=== PATIENT | male | born 1990 | race Hispanic/Latino ===

== ENCOUNTER → 2017-06-07 | Day surgery (SDC) | payer OTHER ==
[~2017-06-07] VITALS: Ht 167.6 cm; Wt 79.0 kg
[~2017-06-07] MED LIST: CLON0.1T PO; DEXL60CA5 PO; ESOM40CA41 PO; FLUO20CA25 PO; KTC2C15 TP; Lactated Ringer's 1,000 ML IV ONE; MULT-1018 PO; OXYC1TAB24 PO; Ondansetron 2 mg/mL 2 mL Inj ONE; Propofol 10,000 mCg/mL 20 mL Inj ONE
[2017-06-07 14:04] VITALS: BP 135/71; PULSE 67; RESP 16; O2SAT 98
--- NOTE | 2017-06-07 14:28 | PCM.HPANE ---
Patient Data Date of Service: Jun 07, 2017 Surgeon Admitting Provider: Attending Provider:Mohan Clinton MD Primary Care Physician:Karlo Dockery DO Other Provider:Lorie Urban Anesthesia Reason for Visit GERD Ht/WT & BMI Height (Feet): 5 Height (Inches): 6 Weight (Kilograms): 79 Body Mass Index 27.00 Allergies Coded Allergies: fentanyl (Verified Adverse Reaction, Intermediate, HEADACHE,AGITATION, ) Past Anesthesia History Anesthesia History: Positive for:: Anesthesia Reactions (Fentanyl), Denies:: Abnormal Airway, Difficult Intubation, Fam Anesthesia Reaction, Fam Malignant Hypertherm, Malignant Hyperthermia Diabetes History Hx Diabetes?: No MRSA MRSA: No Medications Hypertension Medication: No Home Meds Incl Beta Morteza: No Reported Medications Ketoconazole 15 Gm Cream..g.15 Gm TP 06/06/17 oxyCODONE-Acetaminophen 5-325 mg 1 Each Tablet1 Tab PO Q6H PRN For Pain Ref 0 11/03/16 Multivitamin (Multi Vitamin Daily)1 Each Tablet1 Each PO DAILY 30 Days Ref 0 11/03/16 Esomeprazole Magnesium (Nexium)40 Mg Capsule.dr40 Mg PO DAILY 30 Days Ref 0 03/03/15 Discontinued Reported Medications Dexlansoprazole ER (Dexilant)60 Mg Enktwha30 Mg PO DAILY 30 Days Ref 0 06/06/17 Fluoxetine 20 Mg Asweiqf65 Mg PO DAILY Ref 0 11/03/16 Clonidine 0.1 Mg Tablet0.1 Mg PO BID PRN For Anxiety Ref 0 11/03/16 History History of ENT Problems?: Yes HEENT History: Positive for:: Dysphagia (SPICY FOOD) Denies:: Abnormal Airway Cataracts Difficult Intubation Hearing Problem Sinus Problem (dev septum) Denture Type: None Teeth Condition: Within Normal Limits Hx of Heart Problems?: Yes Cardiovascular History: Positive for:: Chest Pain (Cardiac r/o-suspected GERD) Denies:: AICD Atrial Fibrillation Congestive Heart Failure Hypertension Pacemaker Valvular Heart Disease Hx of Respiratory Problem?: Yes Respiratory History: Positive for:: Asthma (CHILDHOOD - no recent exacerbations) Denies:: COPD Cough Hemoptysis Pneumonia Tuberculosis Hx Neurologic Problems?: No Neurological History: Positive for:: Dizziness (currently, with pain) Denies:: CVA Hx of GI Problems?: Yes Gastrointestinal History: Positive for:: Gastroesphageal Reflux Hx of Problems?: Yes Genitourinary History: Positive for:: Urinary Tract Infection (as a child) Denies:: Kidney Stones Male Hx: Denies:: Prostate Problems Hx Musculoskeletal Problems?: Yes Musculoskeletal History: Denies:: Joint Replacement Hx of Psycho/Social Problems?: Yes Psycho Social History: Positive for:: Anxiety (TAKES MEDS TO CONTROL) Denies:: Hx Depression Hx Surgeries?: Yes (Appendectomy, EGD) Hx Any Other Health Problems?: Yes Other History: Denies:: Cancer Thyroid Disease History Blood Transfusions: Denies:: Blood Transfusions Hx Diabetes: No Hx Alcohol Use: NoHx Substance Use: No Smoking Status: Never Smoker Have You Smoked inLast 12 mo: No Stop/Bang Treated for Sleep Apnea?: No Do You Have a CPAP Machine?: No S-Snoring: Do You Snore Loudly: No T-Tired: feel tired, fatigued: No O-Obsered: Observed not breath: No P-Blood Pressure: treated: No B- Body Mass Index > 35 kg/m2: No A- Age over 50: No N- Neck Large Circumference: No G- Gender Male: Yes GLADYS Total Score: 1 GLADYS Risk Assessment: Low Risk, <3 Yes Risk Assessment Category Category 1A: Patient has history of documented sleep apnea, and HAS NOT received any narcotic, sedative or anesthesia administration during this stay. Category 1B: Patient has history of documented sleep apnea, and HAS received any narcotic , sedative or anesthesia administration during this stay Category 2: Patient has SUSPECTED Obstructive Sleep Apnea, and HAS received any narcotic , sedative or anesthesia administration during this stay. Category 3: Patient has SUSPECTED Obstructive Sleep Apnea and HAS NOT received narcotic, sedative or anesthesia administration during this stay. Category 4: Outpatient in Procedural Areas with known sleep apnea or who screen positive for High Risk via the STOP/BANG questionnaire. Exam Exam Vital Signs Vital Signs Date Time Temp Pulse Resp B/P Pulse Ox O2 Delivery O2 Flow Rate FiO2 06/07/17 14:04 36.6 67 16 135/71 98 Room Air General Appearance: Alert, Oriented X3, Cooperative, No Acute Distress HEENT/AIRWAY: MP 1, Neck Movement (from, TMD > 3FB), Mouth Opening (> 3 FB) Lungs: Clear to Auscultation, Normal Air Movement Heart: Exam Unremarkable, Regular Rate/Rhythm, No Murmurs/Rubs/Gallops Plan Impression Patient chart reviewed, patient interviewed and anesthestic plan with risks, benefits, and alternatives discussed, and informed consent obtained. NPO per Anesth. Guidelines: Yes ASA Physical Status: ASA2 Mod Systemic Disease Anesthetic Plan: MAC Bene/Risks/Altern/Consents: Yes HP Complete Prior to Induction: Yes Jaya Bates MD Jun 07, 2017 14:28
[2017-06-07 15:01] VITALS: BP 114/63; PULSE 57; RESP 14; O2SAT 99
--- NOTE | 2017-06-07 15:10 | PCM.ANEP1 ---
Post Anesthesia PACU Phase 1 Assessment Date of Service: Jun 07, 2017 Vital Signs Vital Signs Date Time Temp Pulse Resp B/P Pulse Ox O2 Delivery O2 Flow Rate FiO2 06/07/17 15:01 57 14 114/63 99 Room Air 06/07/17 14:04 36.6 67 16 135/71 98 Room Air Anesthetic Administered: MAC Level of Alertness: Awake, talking NAGY's with Equal Strength: Yes Pain: No Nausea or Vomiting: No CV Function & Hydration Stable: Yes Airway Device: none Oxygen Delivery: Room Air Lungs: Clear to Auscultation, Normal Air Movement Dermatome Level: Full Sensation PACU Phase 2 Assessment Complications: No Follow up Care: No Patient Instructions Provided: N/A Jaya Bates MD Jun 07, 2017 15:10
[2017-06-07 15:13] VITALS: BP 120/69; PULSE 64; O2SAT 99
[2017-06-07 15:15] VITALS: BP 112/62; PULSE 69; O2SAT 100
--- NOTE | 2017-06-07 15:19 | ENDO ---
[address] [address] ENDOSCOPY PROCEDURE PATIENT: EDWARD TRINIDAD : 1990 MR#: [id number] ADMIT: 06/07/2017 JOB ID: [id number] DATE OF SERVICE: 06/07/2017 TYPE OF OPERATION: Esophagogastroduodenoscopy with biopsy. PREOPERATIVE DIAGNOSIS(ES): Gastroesophageal reflux disease. POSTOPERATIVE DIAGNOSIS(ES): Normal upper endoscopy, status post biopsy. ANESTHESIA: Monitored anesthesia care. COMPLICATIONS: None. BLOOD LOSS: Minimal. DESCRIPTION OF PROCEDURE: After risks and benefits explained to the patient, informed consent was obtained. After anesthesia administered, an upper endoscope was then inserted into the mouth, intubated into the esophagus, stomach, second portion of duodenum. Mucosa carefully examined. After procedure was done, scope withdrawn and the procedure terminated. FINDINGS: Upon inspection of the esophagus, the esophagus was normal without masses, ulcers, or lesions. Z-line located at 40 cm from incisors. Upon entering the stomach, stomach was normal without masses, ulcers, or lesions. Retroflexion was normal. Duodenal bulb, first and second portions were normal. Biopsies taken of the antrum, body and distal esophagus. IMPRESSION: Normal upper endoscopy, status post biopsy. RECOMMENDATION: Await pathology results. Follow up with GI clinic as needed.
--- NOTE | 2017-06-09 15:32 | PATH ---
SURGICAL PATHOLOGY Attending Physician:Mohan Clinton MD CASE STATUS: Signed Out PATIENT NAME: EDWARD TRINIDAD PID: [id number] : 1990 DATE COLLECTED:06/07/2017 00:00 SPECIMEN: 1: Stomach, Antrum, Biopsy 2: Gastric, Biopsy 3: Esophagus, Biopsy CLINICAL HISTORY: 1). GASTRIC ANTRUM BIOPSY (RULE OUT H.PYLORI) 2). GASTRIC BODY 3). DISTAL ESOPHAGUS FINAL DIAGNOSIS: 1. Gastric Antrum, Biopsy: Gastric antral and body-type mucosa with chronic gastritis. No H. pylori organisms identified by H&E stain. Immunohistochemistry studies pending; results will be reported as an addendum. Negative for intestinal metaplasia, dysplasia, and malignancy. 2. Gastric Body, Biopsy: Portions of gastric body-type mucosa with no diagnostic abnormality. No H. pylori organisms identified by H&E stain. Negative for intestinal metaplasia, dysplasia, and malignancy. 3. Distal Esophagus: Portions of squamous mucosa with very focal, mild active esophagitis. A fungal stain is pending; results will be reported as an addendum. No well preserved columnar mucosa identified for evaluation. ICD10: K29.7 GROSS DESCRIPTION: The specimens are received in formalin, labeled with the patient's name, and sublabeled as the following: (1) gastric antrum; (2) gastric body; (3) distal esophagus. Next (1) The specimen consists of multiple fragments of mitchell glistening rubbery semitranslucent tissue (0.5 x 0.3 x 0.1 cm in aggregate). Section code: (1A) tissue. Specimen entirely submitted. (2) The specimen consists of multiple fragments of mitchell glistening rubbery semitranslucent tissue (0.6 x 0.2 x 0.1 cm in aggregate). Section code: (2A) tissue. Specimen entirely submitted. (3) The specimen consists of multiple fragments of jara-white glistening rubbery translucent tissue (0.8-0.4 x 0.1 cm in aggregate). Section code: (3A) tissue. Specimen entirely submitted. 06/08/17 ICD-9 CODES: CPT CODES: 1: 48997, 49972 2: 81560 3: 80268, 31607 PROCEDURE/ADDENDA: Immunohistochemistry SPI Interpretation 1. Gastric biopsy: - Negative for Helicobacter pylori by immunohistochemical stains. 3. Distal esophagus, biopsy: - Negative for fungal organisms by PAS stain. - The inflammatory focus is not well represented on the special stain (Alcian blue/PAS) slide; the control tissue stained appropriately. Results-Comments Part 1A. Immunohistochemical stains are performed to further evaluate for the presence of Helicobacter organisms. The patient tissue is stained with monoclonal antibody to Helicobacter pylori (SP48). Positive and negative controls stain appropriately. Result: The patient tissue shows no staining. Interpretation: The gastric mucosa is negative for Helicobacter pylori by immunohistochemical stains. This test was developed and its performance characteristics determined by [facility]. It has not been cleared or approved by the [place]. Food and Drug Administration. The FDA has determined that such clearance or approval is not necessary. This test is used for clinical purposes. It should not be regarded as investigational or for research. Electronically Signed Out Katt Baird MD Electronically Signed Out Katt Baird MD [facility] [address], [place] [address] Technical component performed at [facility], [facility] [address], [place], [address]
== END | disposition home or self-care (01) ==
LOC: END 01:19
PROVIDERS: ATTEND Internal Medicine Gastroenterology
DX: K29.50 Unspecified chronic gastritis without bleeding (principal); K21.9 Gastro-esophageal reflux disease without esophagitis; R13.10 Dysphagia, unspecified; J45.909 Unspecified asthma, uncomplicated; R42 Dizziness and giddiness; F41.9 Anxiety disorder, unspecified; Z79.899 Other long term (current) drug therapy; Z88.8 Allergy status to other drugs, medicaments and biological substances
CPT/HCPCS: 43239; J2405; J7120